=== PATIENT | male | born 1990 | race Caucasian/White ===

== ENCOUNTER 2020-11-17 19:57 | Emergency (ER) | payer BC ==
[~2020-11-17] VITALS: Ht 172.7 cm; Wt 79.1 kg
[2020-11-17 21:37] VITALS: BP 148/76; PULSE 63; TEMP 97.7
== END 2020-11-17 21:37 | disposition home or self-care (01) ==
LOC: COL.ER 19:57
DX: T75.89XA Other specified effects of external causes, initial encounter (principal); Z23 Encounter for immunization; Z91.018 Allergy to other foods; W55.81XA Bitten by other mammals, initial encounter

== ENCOUNTER 2020-12-01 14:11 | Outpatient (RCR) | payer BC ==
[2020-12-01 14:26] VITALS: BP 131/83; PULSE 110; TEMP 98.5
== END 2021-02-18 | disposition home or self-care (01) ==
LOC: COL.ER
DX: Z23 Encounter for immunization (principal); Z20.3 Contact with and (suspected) exposure to rabies